=== PATIENT | male | born 1950 | race Caucasian/White ===

== ENCOUNTER → 2017-01-22 | Outpatient (CLI) | payer OTHER ==
[~2017-01-22] MED LIST: MULT-506; VITA100C4
[2017-01-22 16:53] LABS: BASO % 0.3 %; BASO ABS # 0.03 K/uL (0-0.2); COMPLETE YES; EOS % 4.1 %; HEMATOCRIT 41.7 % (42-52); IG% 0.1 %; LYMPH % 23.8 %; LYMPH ABS # 2.28 K/uL (1.2-3.4); MEAN CELL VOLUME 89.7 fL (80-100); MEAN CORPUSCULAR HEMOGLOBIN 29.9 pg (25-34); MEAN CORPUSCULAR HGB CONC 33.3 g/dl (32-36); MEAN PLATELET VOLUME 9.1 fL (7.4-10.4); MONO % 11.5 %; NEUT % 60.2 %; PLATELET COUNT 285 K/uL (130-400); RED BLOOD COUNT 4.65 M/uL (4.7-6.1); WHITE BLOOD COUNT 9.57 K/uL (4.8-10.8)
[2017-01-22 17:25] LABS: ALT/SGPT 28 U/L (12-78); BLOOD UREA NITROGEN 14 mg/dl (7-18); CALCIUM 8.9 mg/dl (8.5-10.1); CARBON DIOXIDE 29 mmol/L (21-32); CHLORIDE 100 mmol/L (98-107); CHOLESTEROL 165 mg/dl (0-200); CREATININE 0.85 mg/dl (0.60-1.40); GLUCOSE 83 mg/dl (70-99); POTASSIUM 4.1 mmol/L (3.5-5.1); SODIUM 133 mmol/L (136-145); TRIGLYCERIDES 130 mg/dl (0-150); VERY LOW DENSITY LIPOPROT CALC 26 mg/dl
[2017-01-22 17:36] LABS: ALKALINE PHOSPHATASE 78 U/L (45-117); AST/SGOT 18 U/L (15-37); CHOLESTEROL/HDL RATIO 3.1; HDL CHOLESTEROL 53 mg/dl; LDL CHOLESTEROL CALCULATED 86 mg/dl; PROSTATE SPECIFIC ANTIGEN 0.948 ng/ml (0.000-4.000)
== END | disposition home or self-care (01) ==
LOC: C.LABBC 15:04
PROVIDERS: ATTEND Physician Assistant Medical
DX: Z00.00 Encounter for general adult medical examination without abnormal findings (principal); R68.89 Other general symptoms and signs

== ENCOUNTER 2021-09-02 11:32 | Inpatient (IN) ==
[2021-09-02] MEDS ORDERED: SODIUM CHLORIDE 0.9% 1000ML 1,000 ML IV ONE (12:14)
[2021-09-02] MEDS ORDERED: cefTRIAXone SODIUM 2,000 MG/70 ML BAG IV STA (12:31)
[2021-09-02] MEDS ORDERED: ACETAMINOPHEN 325 MG TAB PO STA (12:31)
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
[2021-09-02 13:00] LABS: Basophils # (auto) 0.04 K/uL (0-0.2); Basophils % (auto) 0.2 %; Eosinophils # (auto) 0.01 K/uL (0-0.50); Eosinophils % (auto) 0.1 %; Hemoglobin 13.8 g/dl (14.0-18.0); Immature Granulocytes # (auto) 0.07 K/uL (0.00-0.02); Immature Granulocytes % (auto) 0.4 %; Lymphocytes # (auto) 0.56 K/uL (1.2-3.4); Lymphocytes % (auto) 3.3 %; Mean Corpuscular Hemoglobin 30.1 pg (25.0-34.0); Mean Corpuscular Hgb Conc 34.5 g/dL (32.0-36.0); Mean Corpuscular Volume 87.1 fL (80.0-100.0); Mean Platelet Volume 8.5 fL (9.4-12.4); Monocytes # (auto) 2.06 K/uL (0.24-0.82); Monocytes % (auto) 12.3 %; Neutrophils # (auto) 14.02 K/uL (1.4-6.5); Neutrophils % (auto) 83.7 %; Platelet Count 258 K/uL (130-400); RDW Coefficient of Variation 12.8 % (11.5-14.5); RDW Standard Deviation 40.4 fL (36.4-46.3); Red Blood Count 4.59 M/uL (4.63-6.08); White Blood Count 16.76 K/ul (4.8-10.8)
[2021-09-02 13:12] LABS: Partial Thromboplastin Ratio 1.1; Partial Thromboplastin Time 29.3 Seconds (21.0-31.0)
[2021-09-02 13:17] LABS: Appearance Urine Clear (Clear); Bacteria Urine Automated 4+ (Negative); Bilirubin Urine Negative (Negative); Blood Urine Negative (Negative); Color Urine Yellow; Epithelial Cell Urine Auto 0-5 /lpf (0-5); Glucose Urine UA Negative (Negative); Ketones Urine Negative (Negative); Leukocyte Esterase Urine 2+ (Negative); Nitrite Urine Positive (Negative); Protein Urine Negative (Negative); RBC Urine Automated 0-4 /hpf (0-4); Specific Gravity Urine 1.021 (1.000-1.030); Urobilinogen Urine Negative (Negative); WBC Urine Automated >30 /hpf (0-5)
--- NOTE | 2021-09-02 13:18 | XRay Report ---
XR chest 1V portable HISTORY: SEPSIS COMPARISON: Chest 01/04/2020. FINDINGS: No pneumothorax. No pleural effusions. The heart is top normal in size. No focal lung conso lidations to suggest pneumonia. No evidence for pulmonary edema. There is a loop recorder overlying t he cardiac silhouette. Mild eventration of the right hemidiaphragm persists. IMPRESSION: No acute process. ACT 112: Negative or not required by law. Electronically signed by: Johny Sousa M.D. 09/02/2021 1:17 PM
[2021-09-02 13:33] LABS: Troponin I High Sensitivity 5.4 pg/ml (0-20)
[2021-09-02 13:38] LABS: Albumin Globulin Ratio 1.3 (0.9-2); Albumin Level 4.2 gm/dl (3.4-5.0); Bilirubin,Total 0.7 mg/dl (0.2-1.0); Calcium 9.3 mg/dl (8.5-10.1); Creatinine Clr Calc Pharmacy 91.1 ml/min; Est GFR (African American) 101.4 ml/min; Est GFR (Non-African American) 87.5 ml/min; Globulin 3.2 gm/dl (2.5-4.0); Magnesium 1.8 mg/dl (1.7-2.4); Potassium 3.7 mmol/L (3.5-5.1); Total Protein 7.4 gm/dl (6.0-8.3)
[2021-09-02 13:41] LABS: Procalcitonin < 0.05 ng/ml (0-0.5)
[2021-09-02 13:45] LABS: Influenza A virus by PCR Negative (Neg); Influenza B virus by PCR Negative (Neg); RSV by PCR Negative (Neg); SARS CoV2 RNA(COVID-19) InHosp NEGATIVE (Negative)
[2021-09-02] MEDS ORDERED: OPTIRAY 320 100ml IV ONE (14:13)
--- NOTE | 2021-09-02 14:58 | CT Scan Report ---
CT abd pelvis IV con only CLINICAL HISTORY: r mid abd pain . Fevers COMPARISON STUDY: 07/08/2019 CT DOSE: 676.95 mGycm TECHNIQUE: Standard CT of the Abdomen and Pelvis was performed with IV contrast. A dose lowering nils hnique was utilized adhering to the principles of ALARA. Contrast Volume: Optiray 320, 94 ml. The patient did not receive oral contrast. FINDINGS: Lung base: The lung bases are clear. Abdominal cavity: There is no evidence for abdominal mass, adenopathy or ascites. Liver: There is homogeneous attenuation of the liver parenchyma. There is no evidence for enhancing m ass lesion. Spleen: There is homogeneous attenuation of the splenic parenchyma. There is no enhancing mass lesion . Pancreas: There is homogeneous attenuation of the pancreatic parenchyma. There is no evidence for mas s lesion or peripancreatic fluid collection. Gall Bladder: The gallbladder is well distended with no evidence for intraluminal calculi, wall thick ening or pericholecystic edema. Adrenal glands: The adrenal glands are normal in size and attenuation. There is no evidence for enhan cing mass lesion. Kidneys: There is homogeneous attenuation of the renal parenchyma bilaterally. There is no evidence f or renal calculus or hydronephrosis. There is no evidence for enhancing mass. Sharply defined renal c ysts are again seen. No further follow-up is necessary for these benign findings. Bowel: There is a small hiatal hernia. The bowel loops are normally placed within the abdomen and pel vis without evidence for dilatation or obstruction. There is no evidence for mass lesion. There is mi ld sigmoid diverticulosis without evidence for diverticulitis. There are no inflammatory changes pres ent. There is no evidence for free air. There is a normal appendix in the right lower quadrant. Bladder: The bladder is within normal limits with no evidence for focal mass, calculus or diverticulu m. There is mild diffuse thickening of bladder wall characteristic of chronic bladder outlet obstruct ion. : There is no evidence for pelvic mass or adenopathy. There is no evidence for pelvic ascites. The prostate is mildly to moderately enlarged. Vasculature: There is no evidence for aneurysmal dilatation of the abdominal aorta. Atherosclerotic c alcification is present. Osseous structures: There is no acute osseous pathology. Old L1 compression fracture. IMPRESSION: 1. No acute intra-abdominal or pelvic abnormality. 2. Sigmoid diverticulosis without evidence for diverticulitis. 3. Additional nonacute findings are delineated above. ACT 112: Negative or not required by law. Electronically signed by: Noe Rodriguez M.D. 09/02/2021 2:57 PM
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
[2021-09-02 15:45] LABS: Lyme Ab IgG w/WB Rflx Negative (Negative)
[2021-09-02 15:51] LABS: Lyme Ab IgM w/WB Rflx Equivocal (Negative)
--- NOTE | 2021-09-02 17:26 | Electrocardiogram Report ---
Test Reason : Blood Pressure : / mmHG Vent. Rate : 080 BPM Atrial Rate : 080 BPM P-R Int : 184 ms QRS Dur : 108 ms QT Int : 376 ms P-R-T Axes : 029 -05 025 degrees QTc Int : 433 ms Normal sinus rhythm Incomplete right bundle branch block Borderline ECG When compared with ECG of 04-JAN-2020 18:16, IN interval has decreased Questionable change in QRS axis Confirmed by Mando Etienne ([id number]) on 09/02/2021 5:25:47 PM Referred By: Confirmed By:Mando Etienne
[2021-09-02] MEDS ORDERED: ONDANSETRON INJ 2 MG/ML 2 ML VIAL IV PRN (18:13)
[2021-09-02] MEDS ORDERED: NORMOSOL-R 1,000 ML IV SCH (18:13)
[2021-09-02] MEDS ORDERED: POLYETHYLENE (MIRALAX) 17 GM PACK PO PRN (18:13)
[2021-09-02] MEDS: APIXABAN 5 MG TABLET PO SCH (20:27)
[2021-09-02] MEDS: METOPROLOL TARTRATE 25 MG TAB PO SCH (20:28)
[2021-09-02] MEDS: ACETAMINOPHEN 325 MG TAB PO PRN (20:36)
[2021-09-03] MEDS: ACETAMINOPHEN 325 MG TAB PO PRN ×2 (04:20→22:55)
[2021-09-03 07:10] LABS: Basophils # (auto) 0.04 K/uL (0-0.2); Basophils % (auto) 0.2 %; Eosinophils # (auto) 0.04 K/uL (0-0.50); Eosinophils % (auto) 0.2 %; Hematocrit (blood only) 33.7 % (40.1-51.0); Hemoglobin 11.6 g/dl (14.0-18.0); Immature Granulocytes # (auto) 0.11 K/uL (0.00-0.02); Immature Granulocytes % (auto) 0.6 %; Lymphocytes # (auto) 1.43 K/uL (1.2-3.4); Mean Corpuscular Hemoglobin 30.1 pg (25.0-34.0); Mean Corpuscular Hgb Conc 34.4 g/dL (32.0-36.0); Mean Corpuscular Volume 87.5 fL (80.0-100.0); Mean Platelet Volume 8.5 fL (9.4-12.4); Monocytes # (auto) 1.52 K/uL (0.24-0.82); Monocytes % (auto) 8.5 %; Neutrophils # (auto) 14.71 K/uL (1.4-6.5); Neutrophils % (auto) 82.5 %; Platelet Count 198 K/uL (130-400); RDW Coefficient of Variation 13.2 % (11.5-14.5); RDW Standard Deviation 42.1 fL (36.4-46.3); Red Blood Count 3.85 M/uL (4.63-6.08); White Blood Count 17.85 K/ul (4.8-10.8)
[2021-09-03 07:27] LABS: BUN Creatinine Ratio 16.7 (10-20); Calcium 7.9 mg/dl (8.5-10.1); Creatinine Clr Calc Pharmacy 91.1 ml/min; Est GFR (African American) 101.4 ml/min; Est GFR (Non-African American) 87.5 ml/min; Potassium 3.6 mmol/L (3.5-5.1)
[2021-09-03] MEDS: METOPROLOL TARTRATE 25 MG TAB PO SCH ×2 (07:42→20:25)
[2021-09-03] MEDS: APIXABAN 5 MG TABLET PO SCH ×2 (07:42→20:26)
[2021-09-03] MEDS: SODIUM CHLORIDE 1 GM TABLET PO SCH ×2 (08:02→20:25)
[2021-09-03] MEDS ORDERED: cefTRIAXone SODIUM 2,000 MG in DEXTROSE 5% 50 ML IV SCH (12:00)
[2021-09-03 12:56] LABS: A calco-baum cmplx NotReported Not Detected (NotDetected); Bact fragilis Not Reported Not Detected (NotDetected); C auris Not Reported Not Detected (NotDetected); Calbicans Not Reported Not Detected (NotDetected); Candida glabrata Not Reported Not Detected (NotDetected); Candida krusei Not Reported Not Detected (NotDetected); Cneoformans/gatti Not Reported Not Detected (NotDetected); Cparapsilosis Not Reported Not Detected (NotDetected); Ctropicalis Not Reported Not Detected (NotDetected); E cloacae compx Not Reported Not Detected (NotDetected); Efaecalis Not Reported Not Detected (NotDetected); Efaecium Not Reported Not Detected (NotDetected); Enterobacterales Not Reported Not Detected (NotDetected); Escherichia coli Not Reported Not Detected (NotDetected); H influenzae Not Reported Not Detected (NotDetected); K aerogenes Not Reported Not Detected (NotDetected); Koxytoca Not Reported Not Detected (NotDetected); Kpneumoniae grp Not Reported Not Detected (NotDetected); Lmonocyt Not Reported Not Detected (NotDetected); N meningitidis Not Reported Not Detected (NotDetected); P aeruginosa Not Reported Not Detected (NotDetected); Proteus spp Not Reported Not Detected (NotDetected); Salmonella spp Not Reported Not Detected (NotDetected); Smarcescens Not Reported Not Detected (NotDetected); Staph lugdunensis Not Reported Not Detected (NotDetected); Staph spp. Not Reported DETECTED (NotDetected); Staphaureus Not Reported Not Detected (NotDetected); Staphepi Not Reported Not Detected (NotDetected); Stenmaltophilia Not Reported Not Detected (NotDetected); Strep agal(GrpB) Not Reported Not Detected (NotDetected); Strep pneum Not Reported Not Detected (NotDetected); Strep pyog (GrpA) Not Reported Not Detected (NotDetected); Strep spp Not Reported Not Detected (NotDetected)
[2021-09-03 13:14] LABS: Staphylococcus spp. DETECTED (NotDetected)
--- NOTE | 2021-09-03 18:15 | Hospitalist Progress Note ---
Date of Service September 03, 2021 Assessment & Plan (1) Urinary tract infection: Plan: 2nd GNR. Cont rocephin. Despite leukocytosis he is otherwise improved. I believe the 1/4 positive blood culture is likely a contaminant. He will need BETO to r/o acute prostatitis as this would change length of Rx course. Ok to stop fluids - he is drinking/eating. Repeat blood cx's today. (2) Hyponatremia: Plan: Chronic - baseline 128-133. SIADH? reset osmostat? High urine osm > serum osm despite IV fluids suggests SIADH. If SIADH is present - cause?? Start NaCL tabs - 1gm BID; repeat BMP am. Check uric acid in am (if low this is suggestive of SIADH). (3) Paroxysmal atrial fibrillation: Plan: Remains in NSR. Continue metoprolol and Eliquis. (4) Normocytic anemia: Plan: Check Fe studies in am. Previous B12/folate levels were wnl. (5) Benign prostatic hyperplasia with urinary obstruction and other lower urinary tract symptoms: Plan: Consider flomax. He has bothersome LUTS at home. Needs BETO to r/o prostatitis. (6) Positive blood culture: Plan: only 1 out of 4 bottles from admission. further, the organism in the blood is gram positive; urine shows gram negative pathogen. repeat blood cultures today - suspect they will remain negative. if they remain negative then the 1 bottle is a contaminant. Plan DVT proph - eliquis progressing Admission and Anticipated Discharge Date Admission Date: September 02, 2021 Subjective tele stable overnight he overall feels ok appetite wnl no abd pain fevers are improved no dyspnea patient reports he was first told about low sodium levels in the etiology never discovered despite work-up for such Review of Systems Review of Systems: gen - no significant fatigue, no chills cv - no chest pain pulm - no cough or dyspnea - LUTs present - frequency, incomplete emptying, etc Physical Exam Physical Exam: gen - looks good today, NAD mouth - MMM neck - no JVD heart - RRR, s1 s2, no murmur lungs - CTA b/l abd - soft NT ND BS+ ext - no edema, pulses 2+ b/l Results & Data Results & Data ([facility]) Vital Signs (Past 12 Hours) Vital Signs Temp Pulse Resp BP Pulse Ox O2 Del Method 09/03/21 15:58 37.4 C 84 18 118/65 93 Room Air 09/03/21 11:24 37.1 C 66 18 122/52 L 94 Room Air 09/03/21 08:25 37.0 C 68 20 109/56 L 96 Room Air Laboratory Results Laboratory Results - last 24 hr 09/02/21 09/02/21 09/02/21 12:21 20:45 20:45 WBC RBC Hgb Hct MCV MCH MCHC RDW Std Deviation RDW Coeff of Darrian Plt Count MPV Immature Gran % (Auto) Neut % (Auto) Lymph % (Auto) [place] % (Auto) Eos % (Auto) Baso % (Auto) Neut # (Auto) Lymph # (Auto) [place] # (Auto) Eos # (Auto) Baso # (Auto) Immature Gran # (Auto) Sodium Potassium Chloride Carbon Dioxide Anion Gap BUN Creatinine Est Cr Clr Drug Dosing Est GFR ( Amer) Est GFR (Non-Af Amer) BUN/Creatinine Ratio Glucose Calcium Procalcitonin Urine Osmolality 606 Ur Random Sodium 32 Staphylococcus sp PCR DETECTED A Bld Cult ID Panel PCR See PCR Comment 09/03/21 09/03/21 09/03/21 06:56 06:56 06:56 WBC 17.85 H RBC 3.85 L Hgb 11.6 L Hct 33.7 L MCV 87.5 MCH 30.1 MCHC 34.4 RDW Std Deviation 42.1 RDW Coeff of Darrian 13.2 Plt Count 198 MPV 8.5 L Immature Gran % (Auto) 0.6 Neut % (Auto) 82.5 Lymph % (Auto) 8.0 [place] % (Auto) 8.5 Eos % (Auto) 0.2 Baso % (Auto) 0.2 Neut # (Auto) 14.71 H Lymph # (Auto) 1.43 [place] # (Auto) 1.52 H Eos # (Auto) 0.04 Baso # (Auto) 0.04 Immature Gran # (Auto) 0.11 H Sodium 130 L Potassium 3.6 Chloride 100 Carbon Dioxide 27 Anion Gap 3 BUN 14 Creatinine 0.84 Est Cr Clr Drug Dosing 91.1 Est GFR ( Amer) 101.4 Est GFR (Non-Af Amer) 87.5 BUN/Creatinine Ratio 16.7 Glucose 106 H Calcium 7.9 L Procalcitonin 0.83 H Urine Osmolality Ur Random Sodium Staphylococcus sp PCR Bld Cult ID Panel PCR Diagnostic Findings Urine cx - >100,000 CFU GNR Admit blood cx's - / + GPC PG Care Time/CCT Total # of Minutes Spent Total Time Spent with Patient: Total time spent is greater than 50% in coordination of care (as documented) at patient's floor/unit and/or counseling patient: Coding Level of Care Code 47406 Subseq Hosp Care Lvl 2 Diagnoses Urinary tract infection N39.0 Hyponatremia E87.1 Paroxysmal atrial fibrillation I48.0 Normocytic anemia D64.9 Benign prostatic hyperplasia with urinary obstruction and other lower urinary tract symptoms N40.1; N13.8 Positive blood culture R78.81
[2021-09-04 07:57] LABS: Hematocrit (blood only) 38.1 % (40.1-51.0); Hemoglobin 12.9 g/dl (14.0-18.0); Mean Corpuscular Hemoglobin 30.4 pg (25.0-34.0); Mean Corpuscular Hgb Conc 33.9 g/dL (32.0-36.0); Mean Corpuscular Volume 89.6 fL (80.0-100.0); Platelet Count 226 K/uL (130-400); RDW Coefficient of Variation 13.3 % (11.5-14.5); RDW Standard Deviation 43.6 fL (36.4-46.3); Red Blood Count 4.25 M/uL (4.63-6.08); White Blood Count 16.43 K/ul (4.8-10.8)
[2021-09-04] MEDS: METOPROLOL TARTRATE 25 MG TAB PO SCH ×2 (07:59→20:06)
[2021-09-04] MEDS: APIXABAN 5 MG TABLET PO SCH ×2 (07:59→20:06)
[2021-09-04] MEDS: SODIUM CHLORIDE 1 GM TABLET PO SCH ×2 (08:00→20:06)
[2021-09-04] MEDS ORDERED: STAT IV Infusion **Titration per Protocol STA (08:12)
[2021-09-04] MEDS ORDERED: SODIUM CHLORIDE 0.9% 1000ML 1,000 ML IV SCH (08:15)
[2021-09-04 08:19] LABS: Uric Acid 4.1 mg/dl (2.6-7.2)
[2021-09-04 08:20] LABS: Calcium 8.3 mg/dl (8.5-10.1); Creatinine Clr Calc Pharmacy 102.1 ml/min; Est GFR (African American) 106.2 ml/min; Est GFR (Non-African American) 91.6 ml/min; Potassium 3.8 mmol/L (3.5-5.1)
[2021-09-04 08:38] LABS: Ferritin 340.6 ng/ml (8-388)
[2021-09-04] MEDS: CIPROFLOXACIN / D5W 400 MG/200 ML BAG IV SCH ×2 (09:46→20:07)
[2021-09-04] MEDS: dilTIAZem HCL 125 MG in DEXTROSE 5% 100 ML IV SCH (12:27)
[2021-09-04 17:29] LABS: 18KDIGG Band REACTIVE; 23KDIGG Band NON-REACTIVE; 23KDIGM Band NON-REACTIVE; 28KDIGG Band NON-REACTIVE; 30KDIGG Band NON-REACTIVE; 39KDIGG Band NON-REACTIVE; 39KDIGM Band NON-REACTIVE; 41KDIGG Band REACTIVE; 41KDIGM Band NON-REACTIVE; 45KDIGG Band NON-REACTIVE; 58KDIGG Band NON-REACTIVE; 66KDIGG Band NON-REACTIVE; 93KDIGG Band NON-REACTIVE; Lyme Antibodies, WB IgG NEGATIVE (NEGATIVE); Lyme Antibodies, WB IgM NEGATIVE (NEGATIVE)
--- NOTE | 2021-09-04 20:37 | Hospitalist Progress Note ---
Date of Service September 04, 2021 Assessment & Plan (1) Urinary tract infection: Plan: Clinically improved. 2nd pansensitive e.coli. Cont rocephin due to slow improvement in WBC. Hopefully can convert to PO abx tomorrow. repeat cbc in am. I believe the 1/4 positive blood culture is likely a contaminant. He will need BETO to r/o acute prostatitis as this would change length of Rx course. Repeat blood cx's neg to date. (2) Paroxysmal atrial fibrillation: Plan: Converted to rapid a.fib overnight. Largely no symptoms. Stress of illness & catecholamine increase likely to blame. Transferred to [facility]. Despite rapid HRs all night his rates are controlled this am on PO metoprolol. Adjust BB if needed. Continue to monitor; hopefully will convert back to NSR later today or tomorrow. Continue metoprolol and Eliquis. (3) Hyponatremia: Plan: Chronic - baseline 128-133. SIADH? reset osmostat? High urine osm > serum osm despite IV fluids suggests SIADH. If SIADH is present - cause?? Started NaCL tabs - 1gm BID; repeat BMP today with Na 133. Cont salt tabs. Uric acid low-pat also suggestive of SIADH. (4) Normocytic anemia: Plan: Fe studies largely normal. Previous B12/folate levels were wnl. f/u as outpatient with PCP for this. (5) Benign prostatic hyperplasia with urinary obstruction and other lower urinary tract symptoms: Plan: Consider flomax. He has bothersome LUTS at home. Needs BETO to r/o prostatitis. Will perform tomorrow. (6) Positive blood culture: Plan: only 1 out of 4 bottles from admission. coag neg staph - most likely contaminant. repeat blood cultures negative. no Rx needed. Plan DVT proph - eliquis Admission and Anticipated Discharge Date Admission Date: September 02, 2021 Subjective last pm about 1900 the patient flipped from NSR to rapid a.fib rates >100 most of the night I transferred patient to [facility] [place] upon transfer HRs now <100 with his oral metoprolol only did not require use of cardizem drip since transfer he felt the a.fib come on last pm, but otherwise is not having palpitations, cp, or dyspnea this am feeling good otherwise good appetite no voiding issues or dysuria Review of Systems Review of Systems: gen - fevers resolved; no chills cv - no cp, no orthopnea pulm - no cough GI - no abd pain/nausea/emesis Physical Exam Physical Exam: gen - NAD mouth - MMM neck - no JVD heart - irregularly irregular, s1 s2, no murmur lungs - CTA b/l abd - soft NT ND BS+ ext - no edema, pulses 2+ b/l Results & Data Results & Data ([facility]) Vital Signs (Past 12 Hours) Vital Signs Temp Pulse Pulse Resp BP Pulse Ox O2 Del Method 09/04/21 20:00 37.4 C 84 16 114/78 97 Room Air 09/04/21 19:09 36.9 C 81 17 120/73 96 Room Air 09/04/21 15:52 37.2 C 81 18 121/77 99 Room Air 09/04/21 10:46 37.1 C 91 H 20 117/79 99 Room Air 09/04/21 10:35 100 H Laboratory Results Laboratory Results - last 24 hr 09/02/21 09/04/21 09/04/21 12:21 06:56 06:56 WBC 16.43 H RBC 4.25 L Hgb 12.9 L Hct 38.1 L MCV 89.6 MCH 30.4 MCHC 33.9 RDW Std Deviation 43.6 RDW Coeff of Darrian 13.3 Plt Count 226 MPV 9.0 L Sodium 133 L Potassium 3.8 Chloride 102 Carbon Dioxide 24 Anion Gap 7 BUN 12 Creatinine 0.75 Est Cr Clr Drug Dosing 102.1 Est GFR ( Amer) 106.2 Est GFR (Non-Af Amer) 91.6 BUN/Creatinine Ratio 16.0 Glucose 84 Uric Acid Calcium 8.3 L Iron TIBC Unsaturated IBC Transferrin % Sat Ferritin 340.6 Lyme IgG (Western Blot) NEGATIVE Lyme IgG 18 kDa Band REACTIVE A Lyme IgG 23 kDa Band NON-REACTIVE Lyme IgG 28 kDa Band NON-REACTIVE Lyme IgG 30 kDa Band NON-REACTIVE Lyme IgG 39 kDa Band NON-REACTIVE Lyme IgG 41 kDa Band REACTIVE A Lyme IgG 45 kDa Band NON-REACTIVE Lyme IgG 58 kDa Band NON-REACTIVE Lyme IgG 66 kDa Band NON-REACTIVE Lyme IgG 93 kDa Band NON-REACTIVE Lyme IgM Ab (WB) NEGATIVE Lyme IgM 23 kDa Band NON-REACTIVE Lyme IgM 39 kDa Band NON-REACTIVE Lyme IgM 41 kDa Band NON-REACTIVE 09/04/21 06:56 WBC RBC Hgb Hct MCV MCH MCHC RDW Std Deviation RDW Coeff of Darrian Plt Count MPV Sodium Potassium Chloride Carbon Dioxide Anion Gap BUN Creatinine Est Cr Clr Drug Dosing Est GFR ( Amer) Est GFR (Non-Af Amer) BUN/Creatinine Ratio Glucose Uric Acid 4.1 Calcium Iron 29 L TIBC 210 L Unsaturated IBC 181 Transferrin % Sat 14 L Ferritin Lyme IgG (Western Blot) Lyme IgG 18 kDa Band Lyme IgG 23 kDa Band Lyme IgG 28 kDa Band Lyme IgG 30 kDa Band Lyme IgG 39 kDa Band Lyme IgG 41 kDa Band Lyme IgG 45 kDa Band Lyme IgG 58 kDa Band Lyme IgG 66 kDa Band Lyme IgG 93 kDa Band Lyme IgM Ab (WB) Lyme IgM 23 kDa Band Lyme IgM 39 kDa Band Lyme IgM 41 kDa Band PG Care Time/CCT Total # of Minutes Spent Total Time Spent with Patient: Total time spent is greater than 50% in coordination of care (as documented) at patient's floor/unit and/or counseling patient: Coding Level of Care Code 81235 Subseq Hosp Care Lvl 2 Diagnoses Urinary tract infection N39.0 Paroxysmal atrial fibrillation I48.0 Hyponatremia E87.1 Normocytic anemia D64.9 Benign prostatic hyperplasia with urinary obstruction and other lower urinary tract symptoms N40.1; N13.8 Positive blood culture R78.81
--- NOTE | 2021-09-04 22:04 | Electrocardiogram Report ---
Test Reason : Blood Pressure : / mmHG Vent. Rate : 094 BPM Atrial Rate : 063 BPM P-R Int : 000 ms QRS Dur : 102 ms QT Int : 372 ms P-R-T Axes : 000 -06 002 degrees QTc Int : 465 ms Atrial fibrillation Nonspecific ST abnormality Abnormal ECG When compared with ECG of 02-SEP-2021 12:18, Atrial fibrillation has replaced Sinus rhythm ST now depressed in Anterior leads Confirmed by Anthony Tong ([id number]) on 09/04/2021 10:04:38 PM Referred By: REFERRED SELF Confirmed By:Anthony Tong
[2021-09-05] MEDS ORDERED: METOPROLOL TARTRATE 1 MG/ML VIAL IV STA (05:12)
[2021-09-05] MEDS: METOPROLOL TARTRATE 50 MG TAB PO SCH ×2 (08:02→21:31)
[2021-09-05] MEDS: APIXABAN 5 MG TABLET PO SCH ×2 (08:03→21:31)
[2021-09-05] MEDS: SODIUM CHLORIDE 1 GM TABLET PO SCH (08:03)
[2021-09-05] MEDS: CIPROFLOXACIN / D5W 400 MG/200 ML BAG IV SCH ×2 (08:03→21:30)
[2021-09-05 08:24] LABS: Calcium 8.5 mg/dl (8.5-10.1); Creatinine Clr Calc Pharmacy 110.9 ml/min; Est GFR (African American) 109.9 ml/min; Est GFR (Non-African American) 94.8 ml/min; Potassium 3.8 mmol/L (3.5-5.1)
[2021-09-05] MEDS: dilTIAZem HCL 125 MG in DEXTROSE 5% 100 ML IV SCH (10:05)
[2021-09-05] MEDS ORDERED: METOPROLOL TARTRATE 25 MG TAB PO STA (16:46)
--- NOTE | 2021-09-05 21:21 | Hospitalist Progress Note ---
Date of Service September 05, 2021 Assessment & Plan (1) Urinary tract infection: Plan: Clinically improved/resolved. 2nd pansensitive e.coli. Changed rocephin to IV cipro, then will d/c home on cipro. Elevated PSA very suspicious for prostatitis - will check BETO tomorrow. I believe the 1/4 positive blood culture from admission is a contaminant. Repeat blood cx's neg to date. (2) Elevated PSA: Plan: suspicious for acute prostatitis perform BETO tomorrow if prostatitis then 4 weeks of antibiotics strongly consider flomax and urology f/u as well (3) Paroxysmal atrial fibrillation: Plan: Ongoing a.fib, with rapid rates with walking. Increased metoprolol to 50mg BID, and will give extra 25mg this afternoon. Largely no symptoms. Stress of illness & catecholamine increase likely to blame. Hopefully will convert back to NSR later today or tomorrow. Continue Eliquis. (4) Hyponatremia: Plan: Chronic - baseline 128-133. SIADH? reset osmostat? High urine osm > serum osm despite IV fluids suggests SIADH. If SIADH is present - cause?? Na 133 today. Cont salt tabs. Uric acid low-normal also suggestive of SIADH. (5) Normocytic anemia: Plan: Fe studies largely normal. Previous B12/folate levels were wnl. f/u as outpatient with PCP for this. (6) Benign prostatic hyperplasia with urinary obstruction and other lower urinary tract symptoms: Plan: Consider flomax. He has bothersome LUTS at home. Needs BETO to r/o prostatitis as above. Will perform tomorrow before d/c home. (7) Positive blood culture: Plan: only 1 out of 4 bottles from admission. coag neg staph - most likely contaminant. repeat blood cultures negative. no Rx needed. Plan DVT proph - eliquis if he converts back to NSR OR his a.fib rates are controlled he can d/c home tomorrow Admission and Anticipated Discharge Date Admission Date: September 02, 2021 Subjective remains in a.fib rates poor with minimal activity - rapidly rises to 130-140 with walking 20 feet he denies [place], cp, palpitations slept poorly last pm voiding ok no new complaints Review of Systems Review of Systems: gen - fevers resolved cv - no orthopnea HENT - having some mucous production pulm - no dyspnea gi - no diarrhea; normal BMs Physical Exam Physical Exam: gen - NAD, looks great mouth - MMM neck - no JVD heart - irregularly irregular, s1 s2, no murmur lungs - CTA b/l abd - soft NT ND BS+ ext - no edema, pulses 2+ b/l Results & Data Results & Data ([facility]) Vital Signs (Past 12 Hours) Vital Signs Temp Pulse Resp BP Pulse Ox O2 Del Method 09/05/21 18:58 37.4 C 73 18 146/85 H 99 Room Air 09/05/21 15:14 37.0 C 99 H 17 131/94 99 Room Air 09/05/21 11:32 36.9 C 88 17 135/88 97 Room Air Laboratory Results Laboratory Results - last 24 hr 09/05/21 09/05/21 09/05/21 07:32 07:32 07:32 Sodium 133 L Potassium 3.8 Chloride 102 Carbon Dioxide 25 Anion Gap 6 BUN 9 Creatinine 0.69 Est Cr Clr Drug Dosing 110.9 Est GFR ( Amer) 109.9 Est GFR (Non-Af Amer) 94.8 BUN/Creatinine Ratio 13.0 Glucose 94 POC Glucose Calcium 8.5 Prostate Specific Ag 18.838 H Folate 13.99 09/05/21 07:34 Sodium Potassium Chloride Carbon Dioxide Anion Gap BUN Creatinine Est Cr Clr Drug Dosing Est GFR ( Amer) Est GFR (Non-Af Amer) BUN/Creatinine Ratio Glucose POC Glucose 80 Calcium Prostate Specific Ag Folate PG Care Time/CCT Total # of Minutes Spent Total Time Spent with Patient: Total time spent is greater than 50% in coordination of care (as documented) at patient's floor/unit and/or counseling patient: Coding Level of Care Code 12085 Subseq Hosp Care Lvl 2 Diagnoses Urinary tract infection N39.0 Elevated PSA R97.20 Paroxysmal atrial fibrillation I48.0 Hyponatremia E87.1 Normocytic anemia D64.9 Benign prostatic hyperplasia with urinary obstruction and other lower urinary tract symptoms N40.1; N13.8 Positive blood culture R78.81
[2021-09-05] MEDS ORDERED: MELATONIN 3 MG TAB PO SCH (21:25)
[2021-09-06] MEDS: METOPROLOL TARTRATE 50 MG TAB PO SCH (07:45)
[2021-09-06] MEDS: APIXABAN 5 MG TABLET PO SCH (07:45)
[2021-09-06] MEDS: CIPROFLOXACIN / D5W 400 MG/200 ML BAG IV SCH (07:45)
[2021-09-06] MEDS ORDERED: SODIUM CHLORIDE 1 GM TABLET PO SCH (09:00)
[2021-09-06 09:29] LABS: Basophils # (auto) 0.04 K/uL (0-0.2); Basophils % (auto) 0.5 %; Eosinophils % (auto) 3.8 %; Hemoglobin 12.8 g/dl (14.0-18.0); Immature Granulocytes # (auto) 0.05 K/uL (0.00-0.02); Immature Granulocytes % (auto) 0.6 %; Lymphocytes # (auto) 0.79 K/uL (1.2-3.4); Lymphocytes % (auto) 9.9 %; Mean Corpuscular Hemoglobin 30.4 pg (25.0-34.0); Mean Corpuscular Hgb Conc 34.6 g/dL (32.0-36.0); Mean Corpuscular Volume 87.9 fL (80.0-100.0); Mean Platelet Volume 8.4 fL (9.4-12.4); Monocytes # (auto) 1.06 K/uL (0.24-0.82); Monocytes % (auto) 13.3 %; Neutrophils # (auto) 5.73 K/uL (1.4-6.5); Neutrophils % (auto) 71.9 %; Platelet Count 231 K/uL (130-400); RDW Coefficient of Variation 13.2 % (11.5-14.5); RDW Standard Deviation 42.8 fL (36.4-46.3); Red Blood Count 4.21 M/uL (4.63-6.08); White Blood Count 7.97 K/ul (4.8-10.8)
[2021-09-06 10:15] LABS: BUN Creatinine Ratio 15.6 (10-20); Calcium 8.3 mg/dl (8.5-10.1); Creatinine Clr Calc Pharmacy 99.4 ml/min; Est GFR (African American) 105.1 ml/min; Est GFR (Non-African American) 90.7 ml/min; Potassium 3.5 mmol/L (3.5-5.1)
--- NOTE | 2021-09-06 14:32 | Discharge Summary ---
Date of Service September 06, 2021 Admission HPI Per Admitting Provider Lui Farmer is a 71-year-old male with past medical history significant for paroxysmal A. fib, BPH, and anemia who presents today with a fever of 102 at home this morning. Patient checks his temperature every morning to monitor for COVID, noticed that his temperature was 98.6 this morning, where his temperature usually rides between 97.3 97.8. He frequently monitor it noticed that that it went up to high of 102, which prompted his arrival to the ED for further evaluation. He had been previously feeling well, and constipation over the past 2 days followed by explosive bowel movements, however they have been formed, without blood, painless. He had an episode of moderate right lower quadrant/groin pain today, otherwise asymptomatic. He denies abdominal pain, dysuria, hematuria, increased or decreased urinary frequency, chills, weakness, myalgias. He has previously had a UTI 20 years ago an episode of kidney stones about 20 years ago, however no recent events. In ED, he is febrile with a temperature of 100.5, mildly hypertensive 140s/70s, otherwise vital signs within normal limits. Labs significant for elevated WBC at 16.76, lactate 1.8, procalcitonin < 0.05. Hgb at baseline 13.8, sodium 131 which was to be his baseline over the past 5 years. UA with nitrites, leuk esterase, WBCs and bacteria. COVID/flu/RSV negative. Lyme IgG and IgG pending. CXR without any acute process seen. CT A/P showed diverticulosis without evidence of diverticulitis, otherwise no acute findings or abnormalities. ED course: 1L NS bolus, ceftriaxone, Tylenol Discharge Exam gen - NAD, looks great mouth - MMM neck - no JVD heart - irregularly irregular, s1 s2, no murmur lungs - CTA b/l abd - soft NT ND BS+ ext - no edema, pulses 2+ b/l Discharge Data Allergies Allergy/AdvReac Type Severity Reaction Status Date / Time No Known Allergies Allergy Verified 09/02/21 15:37 Consultations 09/02/21 14:51 ED Decision to Admit Stat Ordered Studies 09/02/21 12:31 CT Abd and Pelvis [CT abd pelvis IV con only] Stat Hospital Course (1) Urinary tract infection: Clinically improved/resolved. 2nd pansensitive e.coli. Changed rocephin to IV cipro, then will d/c home on cipro. Elevated PSA very suspicious for prostatitis - will check BETO tomorrow. I believe the 1/4 positive blood culture from admission is a contaminant. Repeat blood cx's neg to date. (2) Elevated PSA: suspicious for acute prostatitis perform BETO tomorrow if prostatitis then 4 weeks of antibiotics strongly consider flomax and urology f/u as well (3) Paroxysmal atrial fibrillation: Ongoing a.fib, with rapid rates with walking. Increased metoprolol to 50mg BID, and will give extra 25mg this afternoon. Largely no symptoms. Stress of illness & catecholamine increase likely to blame. Hopefully will convert back to NSR later today or tomorrow. Continue Eliquis. (4) Hyponatremia: Chronic - baseline 128-133. SIADH? reset osmostat? High urine osm > serum osm despite IV fluids suggests SIADH. If SIADH is present - cause?? Na 133 today. Cont salt tabs. Uric acid low-normal also suggestive of SIADH. (5) Normocytic anemia: Fe studies largely normal. Previous B12/folate levels were wnl. f/u as outpatient with PCP for this. (6) Benign prostatic hyperplasia with urinary obstruction and other lower urinary tract symptoms: Consider flomax. He has bothersome LUTS at home. Needs BETO to r/o prostatitis as above. Will perform tomorrow before d/c home. (7) Positive blood culture: only 1 out of 4 bottles from admission. coag neg staph - most likely contaminant. repeat blood cultures negative. no Rx needed. Plan DVT proph - eliquis if he converts back to NSR OR his a.fib rates are controlled he can d/c home tomorrow Discharge Plan Discharge Items Patient Disposition: Home - Self-Care Reason For Visit: Urinary Tract Infection Discharge Diagnosis: 1. Urinary tract infection - improving 2. Prostatitis - improving 3. Rapid a.fib - resolved, back in normal rhythm 4. Elevated PSA - likely due to #2 - urology follow-up needed 5. BPH/enlarged prostate - urology follow-up recommended 6. Hyponatremia - chronically low sodium - stable Activity: As commented below Activity Comment: gradually increase activities over the next 2-3 days Exercise/Sports: Gradually increase as tolerated Non-emergency contact: Primary Care Provider and Urologist Call non-emergency contact if: you have any medication questions, your symptoms worsen and you have a fever Follow-up/Referrals: Sylvester Mcdaniels MD [Primary Care Provider] - (see Dr Mcdaniels within 1 week (or one of his associates)) Cesar Velázquez MD [Physician] - (4-[address] Velázquez or one of his partners for elevated PSA/prostatitis/enlarged prostate ) Diet: Heart Healthy Addtl Attending Provider Instructions: Mr Becerra, You were treated for urinary tract infection and prostatitis. You received IV fluids and IV antibiotics. You improved over your stay with resolution of your fever and your high white blood cell count. You had several days of atrial fibrillation and converted back to normal rhythm on 09/05/21. While in a.fib your heart rates were quite high with doing little activity. We adjusted your metoprolol during this time. Your lyme testing ultimately was negative. Your blood cultures were negative - thus, we did not find bloodstream infection. Finally, your sodium level on day of discharge was 132. This is mildly low but quite stable. PSA blood test was 18.8. I suspect it is elevated because of the prostatitis. The PSA should improve over time as your prostate infection resolves. See handouts. Recommendations - 1. antibiotics - cefdinir 300mg twice daily x 23 more days. first dose TONIGHT. 2. probiotics - take probiotics once daily. I sent in a prescription for this. You can also eat a serving or two of yogurt daily over the next few weeks. These may prevent diarrhea from the cefdinir antibiotic. 3. enlarged prostate - tamsulosin ("flomax") 0.4mg once daily in the morning. I will defer to you if you wish to start on this. It will decrease the size of your prostate and help your urinary flow. Most common side effect with it is dizziness with standing up but most men do not have this side effect. See handout on "BPH." 4. sleep - may use [id number] melatonin 5mg about 30 minutes before bedtime, if desired. 5. please increase your metoprolol to 50mg twice daily for your heart/a.fib. New prescription sent in to [facility]. Follow-up - see separate section Return to [facility] if - * you have recurrent fevers over 100 degrees * you develop severe diarrhea * you have inability to pass your urine * you feel that you are back in a.fib and your heart rates are consistently fast (Over 100 beats per minute) * you feel dizzy or lightheaded * any other concerns It was our pleasure to care for you at [facility]! Continue to feel better, Dr Valdovinos Pending Studies at Discharge: No Stand-Alone Forms: My [facility], Smoking Cessation Medications and DC Order Prescriptions: New cefdinir 300 mg capsule 300 mg PO BID 23 Days Qty: 46 0RF Rx Instructions: first dose evening of 09/06/21 Saccharomyces boulardii 250 mg capsule 250 mg PO DAILY 30 Days Qty: 30 0RF tamsulosin [Flomax] 0.4 mg capsule 0.4 mg PO DAILY Qty: 30 2RF Rx Instructions: for enlarged prostate Continued Eliquis 5 mg tablet 5 mg PO BID Qty: 180 3RF Changed metoprolol tartrate 50 mg tablet 50 mg PO BID Qty: 60 2RF Discharge Orders: Discharge Order (Routine); Ordered 09/06/21 Ordered By: Yao Sal/Other Patient Handouts: Bacterial Prostatitis, PSA Test, Benign Prostatic Hyperplasia Admission Data Admit Date/Time: 09/02/21 16:33 Attending Provider: Yao Valdovinos Admit Provider: Yao Valdovinos Primary Care Provider: Sylvester Mcdaniels Other Providers: Yao Valdovinos Coding Diagnoses Urinary tract infection N39.0 Elevated PSA R97.20 Paroxysmal atrial fibrillation I48.0 Hyponatremia E87.1 Normocytic anemia D64.9 Benign prostatic hyperplasia with urinary obstruction and other lower urinary tract symptoms N40.1; N13.8 Positive blood culture R78.81
== END 2021-09-06 15:25 | disposition home or self-care (01) | DRG 690 ==
LOC: ED 11:32 → 2N 16:33 → 2S 09-04 10:28